=== PATIENT | female | born 1995 | race American Indian/Alaskan Native ===

== ENCOUNTER 2016-08-12 10:32 | Observation (INO) | payer OTHER ==
[2016-08-12] MEDS ORDERED: SODIUM CHLORIDE FLUSH SYRINGE 10 ML IV PRN (11:05)
[2016-08-12] MEDS ORDERED: DULCOLAX PR PRN (11:05)
[2016-08-12] MEDS ORDERED: TYLENOL PO PRN (11:05)
[2016-08-12] MEDS ORDERED: MILK OF MAGNESIA PO PRN (11:05)
[2016-08-12] MEDS ORDERED: NACL 0.9% 500 ML 500 ML IV NR (11:11)
[2016-08-12] MEDS ORDERED: BENADRYL PO ONE (11:19)
[2016-08-12] MEDS ORDERED: NACL 0.45% 1000 ML 1,000 ML IV SCH (12:00)
--- NOTE | 2016-08-12 17:55 | Short Stay Summary ---
Short Stay Documentation Date of service: 08/12/16 Narrative H&P: This is a 19-year-old black female para 0000 whose last menstrual period started on 06/30/2016. Patient was seen BY Dr. Fofana due to this menorrhalgia 1 week ago with her results and CBC showing a hemoglobin of 6. Patient does have some symptoms of dizziness when standing and fatigue which she says been long-standing. Patient being admitted for blood transfusion due to her severe anemia. Patient presently was no bleeding after taken Provera. - History Past Medical History: No medical history Past Surgical History: No surgical history Social history: single - Allergies and Medications Current Medications: Allergies No Known Allergies Allergy (Verified 08/12/16 17:51) Active Medications Acetaminophen (Tylenol) 650 mg PO Q4H PRN PRN Reason: Pain MILD(1-3)/Fever >100.5/YUAN Last Admin: 08/12/16 15:51 Dose: 650 mg Acetaminophen (Tylenol) 650 mg PO Q4H MOLLY Stop: 08/13/16 11:59 Bisacodyl (Dulcolax) 10 mg CO QDAY PRN PRN Reason: Constipation unrelieved by MOM Docusate Sodium (Colace) 100 mg PO BID MOLLY Sodium Chloride (Nacl 0.45% 1000 Ml) 1,000 mls @ 75 mls/hr IV DIRECT MOLLY Sodium Chloride (Nacl 0.9% 500 Ml) 500 mls @ 0 mls/hr IV ONCE NR PRN Reason: As Directed Stop: 08/12/16 23:59 Last Admin: 08/12/16 15:50 Dose: 50 mls/hr Magnesium Hydroxide (Milk Of Magnesia) 30 ml PO Q4H PRN PRN Reason: Constipation Sodium Chloride (Sodium Chloride Flush Syringe 10 Ml) 10 ml IV PRN PRN PRN Reason: LINE FLUSH - Physical exam General appearance: no acute distress Integumentary: no rash HEENT: Atraumatic Lungs: Normal air movement Breasts: deferred Heart: Regular rate Gastrointestinal: normal Female Genitourinary: deferred Rectal Exam: deferred Extremities: no ischemia Neurological: Normal speech, Strength at 5/5 X4 ext, Normal tone - Hospital course Hospital course: Patient admitted received 3 units PRBC Hgb improved to 8.2. No orthostatic symptoms Will f/u in office with US on 08/19/16 - Disposition Condition at discharge: Good Disposition: DISCHARGED TO HOME OR SELFCARE - Discharge Diagnoses (1) Menorrhagia Status: Acute Qualifiers: Menorrahagia type: with irregular cycle Qualified Code(s): N92.1 - Excessive and frequent menstruation with irregular cycle (2) Anemia Status: Acute Qualifiers: Iron deficiency anemia type: chronic blood loss (3) BMI 40.0-44.9, adult Status: Chronic Short Stay Discharge Plan Activity: advance as tolerated Diet: regular Additional Instructions: Appt 08/19/16
[2016-08-12] MEDS ORDERED: COLACE PO SCH (22:00)
[2016-08-12] MEDS: TYLENOL PO SCH (22:54)
[2016-08-12] MEDS ORDERED: BENADRYL PO NR (23:00)
[2016-08-13] MEDS: TYLENOL PO SCH (04:12)
[2016-08-13 06:23] LABS: Hematocrit 27.1 % (30.3-42.9); Hemoglobin 8.2 gm/dl (10.1-14.3)
[2016-08-13 12:36] VITALS: BP 100/68
== END 2016-08-13 13:55 | disposition home or self-care (01) ==
LOC: UNDOADMOB 10:32 → 3A 10:32 → OB 12:03
PROVIDERS: ADMIT Obstetrics & Gynecology; ATTEND Obstetrics & Gynecology
DX: N92.1 Excessive and frequent menstruation with irregular cycle (principal); D50.9 Iron deficiency anemia, unspecified; Z68.41 Body mass index [BMI] 40.0-44.9, adult
CPT/HCPCS: 36415; 85014; 85018; 86850; 86900; 86901; 86920; 96360; 96361; G0378; G0379; J7040; P9016